=== PATIENT | male | born 1945 | race Caucasian/White ===

== ENCOUNTER 2019-06-09 11:25 | Outpatient (CLI) | payer MEDICARE, OTHER, SELFPAY ==
--- NOTE | 2019-06-09 | XR_ITS ---
WS: [id number] RIGHT THIRD FINGER 3 VIEW TECHNIQUE: PA, oblique and lateral. HISTORY: RT FINGER PAIN COMPARISON: None available. No fracture or dislocation. There is diffuse soft tissue edema around the second and third fingers. S ubchondral cyst in the head of the middle phalanx third finger. Suspect early erosion in the second m etacarpal head. There is additional lucency at the third metacarpal head articular surface and the pr oximal third phalanx. 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 No significant soft tissue swelling. XR/XR finger RT min 2V [id number] IMPRESSION: 1. Mild diffuse soft tissue swelling second and third fingers with osteoarthri tis. 2. Inflammatory arthritis suspected as there are erosions at the second and th ird metacarpal heads and at the proximal third phalanx.
== END 2019-06-09 11:26 | disposition home or self-care (01) ==
PROVIDERS: Family Provider Family Medicine; PCP Family Medicine; Visit Provider Family Medicine
DX: Z01.89 Encounter for other specified special examinations (principal)

== ENCOUNTER → 2019-08-30 14:18 | Outpatient (BNVA) | payer MEDICARE, OTHER, SELFPAY | PROVIDERS: Family Provider Family Medicine; PCP Family Medicine; Visit Provider Internal Medicine Rheumatology | DX: M20.019 Mallet finger of unspecified finger(s) (principal); M18.9 Osteoarthritis of first carpometacarpal joint, unspecified | CPT/HCPCS: 99213 ==

== ENCOUNTER → 2021-06-18 10:54 | Outpatient (BNVA) | payer MEDICARE, OTHER, SELFPAY | PROVIDERS: Family Provider Family Medicine; PCP Family Medicine; Visit Provider Podiatrist Foot & Ankle Surgery | DX: M19.071 Primary osteoarthritis, right ankle and foot (principal); M77.31 Calcaneal spur, right foot; M79.671 Pain in right foot | CPT/HCPCS: 73630 ==

== ENCOUNTER → 2021-07-23 09:40 | Outpatient (BNVA) | payer MEDICARE, OTHER, SELFPAY | PROVIDERS: Family Provider Family Medicine; PCP Family Medicine; Visit Provider Podiatrist Foot & Ankle Surgery | DX: M72.2 Plantar fascial fibromatosis (principal); Z46.89 Encounter for fitting and adjustment of other specified devices; M79.673 Pain in unspecified foot | CPT/HCPCS: 97760; 99213; L4397 ==

== ENCOUNTER 2021-07-23 10:48 | Outpatient (CLI) | payer MEDICARE, OTHER, SELFPAY | END 2021-07-23 10:49 | disposition home or self-care (01) | LOC: SPT 10:49 | PROVIDERS: Family Provider Family Medicine; PCP Family Medicine; Visit Provider Podiatrist Foot & Ankle Surgery | DX: Z46.89 Encounter for fitting and adjustment of other specified devices (principal); M72.2 Plantar fascial fibromatosis; M79.673 Pain in unspecified foot | CPT/HCPCS: 97760; L4397 ==